=== PATIENT | female | born 1985 | race Caucasian/White ===

== ENCOUNTER → 2019-10-04 15:53 | Outpatient (CLI) | payer OTHER, SELFPAY ==
[2019-10-04 17:28] LABS: Cancer Antigen 125 15 U/mL (0-35)
== END ==
PROVIDERS: Family Provider Family Medicine; PCP Family Medicine; Visit Provider Specialist
DX: N83.202 Unspecified ovarian cyst, left side (principal); R18.8 Other ascites
CPT/HCPCS: 36415; 86304

== ENCOUNTER 2019-12-21 06:32 | Day surgery (SDC) | payer OTHER, SELFPAY ==
[2019-12-19 12:34] VITALS: BMI 36.3
[2019-12-21] VITALS (10 sets, daily range): BP systolic 95–133; BP diastolic 50–77; PULSE 78–94; RESP 11–17; TEMP 35.9–37.1; O2SAT 95–98; BMI 35.9
--- NOTE | 2019-12-21 | PATH_ITS ---
[facility] Accession Number: [id number] . 01 Material submitted: . uterus - UTERUS (NOT INCL. CERVIX), BILATERAL FALLOPIAN TUBES AND OVARIES . 02 Diagnosis: Uterus, Bilateral Fallopian Tubes and Ovaries, Supracervical Hysterectomy and Bilateral Salpingo-oophorectomy (Weight 77 grams): Secretory endometrium; negative for glandular hyperplasia, cytologic atypia, or malignancy. Myometrium with no significant histomorphologic abnormality. Uterine serosa with no significant histomorphologic abnormality. Attached ovary with a hemorrhagic corpus luteum cyst (1.9 cm) and multiple benign cortical follicular cysts. Separate ovary with multiple benign cortical luteal cysts. Attached and detached fallopian tubes with no significant histomorphologic abnormality; negative for atypia or malignancy. [facility] 12/25/2019 1036 Local . 02 Electronically signed: . Ngoc Funez MD, Pathologist NPI- [id number] . 01 Gross description: . Received in formalin, labeled uterus (not including cervix), bilateral fallopian tubes and ovaries, is an upper uterine body in multiple pieces (77 grams, 8.5 x 7.5 x 4.0 cm in aggregate), and ovary (4.0 x 3.0 x 2.2 cm) with an attached fimbriated fallopian tube (length-3.2 cm, diameter-0.4 cm), a separate ovary (3.0 x 2.4 x 1.3 cm) and a detached fimbriated fallopian tube (length-3.2 cm, diameter-0.3 cm). The cervix is absent. The specimen cannot be oriented. The apparent endometrium (average thickness-0.1 cm) is shin, smooth and flat. The myometrium cannot be grossly measured. The parenchyma is shin and unremarkable. The serosa is pale shin, smooth and shiny. The ovaries have pleitez-shin dull flat serosa and pleitez-shin solid cystic parenchyma with corpus albicans and corpus luteum identified. The cavities (0.1 cm-1.9 cm) contain clear colorless fluid. The linings are smooth and flat with no excrescences identified. The fallopian tubes have shin smooth shiny serosa and shin unremarkable lumens. Section code: (A1, A2) endomyometrium; (A3, A4) endomyometrium, opposite side; (A5) attached ovary, representative government relations serial sections; (A6) separate ovary, representative government relations serial sections; (A7) attached fallopian tube, representative government relations serial sections; (A8) attached fimbria, bivalved, entirely submitted; (A9) separate fallopian tube, representative government relations serial sections; (A10) separate fimbria, bivalved, entirely submitted. ([id number]) /MRV 12/22/2019 1427 Local . 02 Pathologist provided ICD-10: N83.209 . 02 CPT . 759433 Performed at: 01 [facility] [address] [id number] MD Olayinka Lake MD Phone: [phone] Performed at: 02 [facility] [address] [place] [address] [id number] MD Beth Dinero MD Phone: [phone]
--- NOTE | 2019-12-21 07:14 | PM.PREOP ---
Pre-operative Note Interval Note History & Physical reviewed/Exam performed by Physician: Yes Changes to H&P: No
[2019-12-21] MEDS: LACTATED RINGERS 1,000 ML 42 ML IV ×2 (07:20→08:42)
[2019-12-21] MEDS: CEFAZOLIN 2 GM/100 ML FROZ.PIGGY IV (07:41)
--- NOTE | 2019-12-21 08:20 | SUR.OPER ---
Lithotomy on padded OR bed. Ohlman Pad Positioner under torso. Head on pillow, arms padded and tucked at sides. Legs secured in padded yellow fins stirrups.
[2019-12-21] MEDS: ROPIVACAINE 2% PF 2 MG/ML 20ML AMP 20 ML INJ (08:36)
[2019-12-21] MEDS: BUPIVACAINE 0.5% W/ EPI (PF) 10 ML VIAL 30 ML INJ (08:37)
--- NOTE | 2019-12-21 09:19 | P.OP_ITS ---
Operative Date/Time/Diagnoses Date of procedure: 12/21/19 Time of procedure: 09:19 Pre-op diagnosis: Dysmenorrhea, family history of ovarian cancer, ovarian cyst Post-op diagnosis: same Procedure & Clinicians Procedure: Laparoscopic supracervical hysterectomy with bilateral salpingo oophorectomy Same procedure as scheduled: Yes Indications: Dysmenorrhea, ovarian cysts, family history of ovarian cancer Surgeon: Patricia Kaufman Patient Admitting Clerk: Caesar Davidson Yes if Unassisted: No Anesthesia Type: General Operative Notes Findings: Normal tubes, ovaries, and uterus. Possible perineal endometriosis. Physiological ovarian cyst. No internal hernias, or adhesions. Normal bowel surface. Normal liver edge. Closure Type: primary Specimen(s): other (Uterus above the level of the bladder with bilateral tubes and ovaries) Estimated Blood Loss (mL): 50 Blood products transfused: none Procedure in detail: Patient is brought to the operating room where she underwent general anesthesia and placed in low yellowfin stirrups. She was prepped and draped in the usual sterile fashion. A check list was reviewed with the staff in the room prior to beginning of the case. Patient had pulsatile stockings in place and functional. 2 g of Ancef were in prior to beginning of the case.. A Colón catheter was placed. A single-tooth tenaculum was placed on the anterior lip of the cervix and the cervix dilated to a #6 Hegar dilator. The uterine manipulator was placed through the cervix into the uterus with the balloon inflated with 3 mL of air. The area of the umbilical incision and the 5 mm right and left lower quadrant incisions were injected with 0.5% Marcaine with epi. An incision was made with scalpel. The verries needle was placed into the abdomen and confirmed in the appropriate place with withdrawal on a syringe and then free flow of fluid down through the needle. The abdomen was insufflated with CO2. The needle was removed and a 5 mm trocar placed without difficulty. There did not appear to be any damage is placement of the trocar. The right and left lower quadrant incisions were made with the scalpel and the trochars placed without damage to internal structures. The PK forceps were used to cauterize the infundibulopelvic ligaments. Sequential bites were taken along the mesosalpinx followed by the round ligaments on both sides. Sequential bites were taken down the broad ligaments. The uterine arteries were cauterized. An incision was made above the level bladder pushing the bladder away from the cervix. The JANINE loop was placed around the uterus and the uterus was amputated above the level of the bladder. Bleeding was controlled with the PK forceps. The PK forceps were used to cauterize in the endocervical canal. A supracervical incision was made and an 11 mm port placed. A 15 mm Endo Catch bag was placed in the abdomen. The uterus, tubes and ovaries were placed in the bag and brought up through the suprapubic port site. The Iván O was placed. The uterus was hand morselized. The abdomen was reinsufflated and adequate hemostasis was noted. 20 cc of ropivacaine was placed over the cervical stump. The trochars were removed and the CO2 allowed escape from the abdomen. The fascia layer of the suprapubic site was repaired with 0 Polysorb suture. Skin was closed with 4-0 Monocryl suture at the suprapubic site and the other 3 sites. The patient went to recovery room in good condition. Counts of instruments and sponges were correct. Complications: none Post-operative Condition: stable Disposition: observation (Patient hopes to be discharged later today) Plan for aftercare: Routine post laparoscopic hysterectomy.
[2019-12-21] MEDS: KETOROLAC 30 MG/ML VIAL IV (09:41)
--- NOTE | 2019-12-21 09:58 | SUR.PHASEI ---
pt transferred to acute care floor in stable condition, vss. Bedside report given to NANETTE Fitch. Pt transferred to NANETTE Fitch at that time.
[2019-12-21] MEDS: LACTATED RINGERS 1,000 ML 100 ML IV (10:38)
--- NOTE | 2019-12-21 10:47 | PC.NURSE ---
Oriented to room and call light, Patient felt urge to void upon arrival to unit. Assisted to bathroom, ambulating without problems, denies dizziness/lightheadedness or other complaint. Reports mild cramping to lower abd/pelvic area just like period cramping. Light spotting noted on cam pad. Voided without difficulty. Patient is eager to discharge to home.
--- NOTE | 2019-12-21 12:10 | PC.NURSE ---
Patient eager to leave, her is at bedside. discharge instructions reviewed with patient and her , they state understanding and have no further questions at this time. Dr. Kaufman came to see patient and changed her prescription to norco per patient's tolerance, per Dr. Kaufman's office patient is sent electronically now to . IV dc'd intact. Patient's dressings remain intact. Patient states she will call Dr. Kaufman's office to schedule her follow up appointment for 1 week. Patient escorted out via wheelchair with all her belongings by [employer] to be discharged to home with her .
== END 2019-12-21 12:23 | disposition home or self-care (01) ==
LOC: OR 06:34 → AC 06:35
PROVIDERS: Family Provider Family Medicine; PCP Family Medicine; Referring Provider Specialist; Visit Provider Specialist
PROC: 0UT94ZL Resection of Uterus, Supracervical, Percutaneous Endoscopic Approach (ICD-10-PCS; CPT 58542; principal; 2019-12-21 07:45)
DX: N83.10 Corpus luteum cyst of ovary, unspecified side (principal); F17.210 Nicotine dependence, cigarettes, uncomplicated; N83.00 Follicular cyst of ovary, unspecified side; N83.299 Other ovarian cyst, unspecified side
CPT/HCPCS: 58542; J0330; J0690; J1100; J1170; J1885; J2405; J2795; J3010

== ENCOUNTER → 2021-08-01 11:16 | Outpatient (CLI) | payer OTHER, SELFPAY ==
[2021-07-08 10:30] VITALS: BMI 35.9
[2021-08-01 13:19] LABS: COVID19 -Nasal RAPID Negative (Negative)
== END ==
PROVIDERS: Family Provider Family Medicine; PCP Family Medicine; Referring Provider Nurse Practitioner; Visit Provider Nurse Practitioner
DX: Z20.822 Contact with and (suspected) exposure to COVID-19 (principal)
CPT/HCPCS: 87635

== ENCOUNTER 2021-08-04 06:19 | Observation (INO) | payer OTHER, SELFPAY ==
[2019-12-21 10:43] VITALS: BMI 35.9
[2021-07-08 10:30] VITALS: BMI 35.9
[2021-07-31 09:44] VITALS: BMI 37.6
[2021-08-04] VITALS (18 sets, daily range): BP systolic 102–191; BP diastolic 49–99; PULSE 73–114; RESP 10–18; TEMP 35.9–37.4; O2SAT 90–98; BMI 39.1
--- NOTE | 2021-08-04 | DI.RAD.S_ITS ---
PROCEDURE: XR CERVICAL SPINE 2V OR 3V INDICATIONS: C3-C6 ACDF TECHNIQUE: 2 fluoroscopic images of the cervical spine were submitted. COMPARISON: None. FINDINGS: Anterior cervical fixation hardware is seen at C3 through C6 with evidence of discectomy. An endotracheal tube is seen in situ. IMPRESSION: Anterior cervical fixation hardware as detailed above. Dictated by: Lisandro Horton M.D. on 08/04/2021 at 11:36 Approved by: Lisandro Horton M.D. on 08/04/2021 at 11:37
[2021-08-04] MEDS: ACETAMINOPHEN 325 MG TABLET 975 MG PO (07:13)
[2021-08-04] MEDS: LACTATED RINGERS 1,000 ML 42 ML IV ×2 (07:14→09:49)
--- NOTE | 2021-08-04 07:42 | PM.HP.1 ---
History of Present Illness History of Present Illness Date Patient Seen: 08/04/21 Time Patient Seen: 07:42 Date of Onset of Symptoms: 06/25/20 Chief complaint: ACDF *OPB* Narrative: Ms. Romero is a 36 yo F with chronic neck pain with radiating pain into her arms, left worse than right. She failed multiple conservative care with worsening pain and arm numbness and weakness. After discussing risks and benefits of treatment options, patient elected to proceed with surgery. Patient History Medical History Current smoker Depression Easy bruisability Family history of malignant neoplasm of ovary in first degree relative Family history of malignant neoplasm of ovary in second degree relative Migraines Neck injury (2013) Surgical History S/P laparoscopic supracervical hysterectomy (~12/21/19) Family & Social History Social History: household members spouse,children Prior Living Arrangements House Safety & Behavioral: Feels Safe in Current Yes Environment Been Physically Hurt or No Threatened By a Person Suicidal Ideation Description None Suicide Plan Description No Plan Tobacco & Substance use: Tobacco type cigarettes Smoking Status Current every day smoker Smoking packs per day 0.5 alcohol intake current alcohol intake frequency holiday/special occasion Substance Use Type does not use Meds Home Medications and Allergies Home Medications Medication Instructions Recorded Confirmed Type cyclobenzaprine 5 mg tablet 10 mg PO BEDTIME 10/04/19 08/04/21 History sertraline 25 mg tablet 50 mg PO QAM tab 10/04/19 08/04/21 History pregabalin 50 mg capsule 75 mg PO BID 11/27/19 08/04/21 History estradiol 2 mg tablet 2 mg PO DAILY #30 tab 12/21/19 08/04/21 Rx hydrocodone 5 mg-acetaminophen 325 1 tab PO Q4-6H PRN 07/31/21 08/04/21 History mg tablet ibuprofen 200 mg tablet 2,400 mg PO DAILY PRN 07/31/21 08/04/21 History naproxen sodium 220 mg capsule 220 mg PO DAILY PRN 07/31/21 08/04/21 History (Aleve) Allergies Allergy/AdvReac Type Severity Reaction Status Date / Time procaine [From Novocain] Allergy Intermediate Verified 08/04/21 07:16 sumatriptan [From Imitrex] AdvReac Severe Increases Verified 07/31/21 10:11 pain bupropion AdvReac Mild swelling Verified 12/28/19 14:05 in ankles Review of Systems Review of Systems ROS: Yes All systems reviewed with the patient and are negative except as otherwise documented Exam Vital Signs (past 8 hours): - 08/04/21 06:51 Temperature 97.6 F Pulse Rate 89 Respiratory Rate 16 Blood Pressure 112/75 Pulse Oximetry 98 Oxygen Delivery Method Room Air Neck Other: decreased ROM due to pain and stiffness Neuro Other: + Spurlingts to LUE, sensibility decreased to left C5, C6 dermatome, motor strength 4/5 in left deltoid, biceps. Assessment & Plan Assessment & Plan narrative: Risks for surgery include but not limited to bleeding, infection, nerve/dura/esophagus/blood vessel injury, need for additional procedure, dysphagia, persisting pain. Patient understands and would like to proceed with surgery. Patient is scheduled for C3-6 ACDF. Time Spent With Patient Critical Care time: I spent a total of [] minutes of critical care time on this patient's care today; this time is exclusive of procedural time.
[2021-08-04] MEDS: CEFAZOLIN 1 GM VIAL 2 GM IV ×3 (07:55→23:54)
--- NOTE | 2021-08-04 08:20 | SUR.OPER ---
Supine, head on gel donut. Arms padded with gel pads, tucked at sides, towel roll under shoulders. Safety belt at thigh. Legs uncrossed, heels on gel pad.
--- NOTE | 2021-08-04 11:22 | P.OP_ITS ---
Operative Date/Time/Diagnoses Date of procedure: 08/04/21 Time of procedure: 08:00 Pre-op diagnosis: 1. C3-4, C4-5, C5-6 spinal stenosis 2. C3-4, C4-5, C5-6 spondylosis with radiculopathy Post-op diagnosis: same Procedure & Clinicians Procedure: 1. C3-4, C4-5, C5-6 anterior cervical diskectomy and fusion 2. C3-4, C4-5, C5-6 anterior interbody cage placement 3. C3-4, C4-5, C5-6 anterior instrumentation with plate and screw placement in C3, C4-C5-C6 vertebrae 4. Utilization of microsurgical technique and operating microscope Same procedure as scheduled: Yes Indications: Patient failed multiple conservative management with worsening pain weakness and numbness in her upper extremity. Patient has been having difficulty performing activity of daily living. After discussing risks benefits of treatment options, patient elected proceed with surgery. Surgeon: Aster Rivas Treating Engineer Helper: Megha Frye Click Yes if Unassisted: No Anesthesia Type: General Operative Notes Closure Type: primary Specimen(s): none sent Prosthetic devices, grafts, tissues, transplants, or devices: Globus Extend plate, PEEK cages Applied: catheter Estimated Blood Loss (mL): 20 Blood products transfused: none Procedure in detail: Patient was seen in the preoperative area. Risks and benefits of the surgery was discussed with the patient. Operative consent was obtained and placed in the chart. Patient was then taken to the operative room. Prophylactic antibiotic was given less than 0.5 hr prior to skin incision. General anesthesia was administered. Patient was placed into a supine position on her radiolucent table. Bilateral shoulders were taped down to allow proper C- arm imaging. Anterior cervical area was prepped and draped in a sterile fashion. Time-out was performed at this time. Using lateral C-arm imaging, the level between C3 and C6 was identified and marked on patient's neck. A oblique incision from midline towards medial border of sternocleidomastoid muscle was made. The platysma muscle was incised in line with skin incision. Metzenbaum scissor was used to develop the plane between the medial border of sternocleidomastoid d and the strap muscles medially. The carotid sheath and its contents were identified and protected behind the hand- held retractor during the entire case. The plane between the carotid sheath and strap muscles was developed with Metzenbaum scissors. Dissection was made down to the level of the anterior cervical fascia. Longus colli muscle was incised on the anterior aspect of vertebral bodies bilaterally from C3-C6. Spinal needle was placed into the C3-4 disc space and confirmed with lateral C-arm imaging. Using microsurgical technique and operative microscope, anterior cervical diskectomy was performed at C3-4 C4-5 and C5-6 level. This was done by removing the disc material, removing the anterior and posterior osteophytes posterior longitudinal ligaments along with performing bilateral foraminotomies at all 3 levels. Patient was found to have severe central and foraminal stenosis at all 3 levels. Patient's stenosis was fully decompressed after decompression was completed. After the diskectomy was completed, 3 anterior interbody cages were obtained. The cages were packed with Globus DBM bone grafting material. One cage each along with the bone grafting material was then packed into the interbody spaces from C3-C6 with one cage into each interbody level. After the cages were placed, the anterior cervical plate was stabilized to the C3-C6 vertebrae using 2 screws at each each level. Total 8 screws were placed. After confirming placement of the hardware with AP and lateral C-arm imaging, the screws were locked into the plate using the locking mechanism and torque limiting screwdriver. After the hardware was placed and confirmed with AP and lateral C-arm imaging, the wound was irrigated with sterile normal saline. The platysma muscle and the subcutaneous tissue was closed with 2-0 Vicryl. The skin was closed with 4-0 Monocryl and Steri-Strips. Patient tolerated the procedure well. Patient was transferred recovery room in stable condition. There were no complications. Complications: none Post-operative Condition: stable Disposition: PACU Plan for aftercare: Admit to inpatient hospital
[2021-08-04] MEDS: HYDROMORPHONE 2 MG INJ IV ×2 (12:01→12:09)
--- NOTE | 2021-08-04 12:06 | SUR.PHASEI ---
SBAR report at bedside from Marie FITZPATRICK [id number]
[2021-08-04] MEDS: OXYCODONE IR 5 MG TABLET PO ×2 (12:14→12:44)
[2021-08-04] MEDS: hydrOXYzine 50 MG/ML INJ 25 MG IM (12:17)
[2021-08-04] MEDS: SODIUM CHLORIDE 0.9% 1,000 ML 100 ML IV ×2 (13:15→23:53)
--- NOTE | 2021-08-04 13:33 | PC.NURSE ---
Addendum entered by Oma Polo R.N. 08/04/21 15:21: Patient tapered to 1L O2, remains 91-93%. Ice bags refilled and patient repositioned for comfort. Call light in reach. Original Note: 1250 PATIENT ARRIVED FROM PACU VIA BED WITHOUT COMPLICATION. LUNGS CTA, REQUIRING 2L O2 NC, 92-96%, RR 12. CONTINUOUS PULSE OX REMAINS ON. HRR, VSS. NS @100 STARTED PER MD ORDERS. IS PLACED BEDSIDE AND PATIENT INSTRUCTED ON USE, PATIENT PERFORMED ONE INHALATION TO 500, ENCOURAGED PATIENT TO DO 10XHOUR. PATIENT TOLERATING FLUIDS, DENIES N/V. ABD SOFT/NONTENDER, REPORTS LAST BM 08/03. PATIENT DROWSY BUT RESPONDS APPROPRIATELY TO QUESTIONS, OPENS EYES. REPORTS PAIN 03/27 AND 'CREEPING UP'. ANTERIOR DSG CDI, SOFT COLLAR INTACT, ICE PACKS PLACED POSTERIORLY PER PATIENT REQUEST. FOOT SCD'S ON BILAT. PATIENT'S KELSEA REMAINS BEDSIDE. PATIENT DENIES FURTHER NEEDS AT THIS TIME. CALL LIGHT IN REACH, WILL CONTINUE TO MONITOR.
--- NOTE | 2021-08-04 14:10 | OT.IPNOTE ---
Pt not wanting to get up for OT eval today as just up from surgery and states would rather do it tomorrow morning. Encourgaed pt to try to get up with PT later this afternoon.
[2021-08-04] MEDS: HYDROMORPHONE 0.5 MG INJ 0.2 MG IV ×4 (14:48→22:49)
--- NOTE | 2021-08-04 15:53 | PT-IP ANOTE ---
Contacted pt to initiate PT evaluation but she reported high level of pain and was too groggy and tired to meaningfully participate with therapy. Will follow up morning of 08/05.
[2021-08-04] MEDS: hydrOXYzine pamoate 25 MG CAPSULE PO ×2 (16:03→22:49)
[2021-08-04] MEDS: OXYCODONE IR 5 MG TABLET 10 MG PO ×3 (17:49→23:52)
[2021-08-04] MEDS: SENNOSIDES 8.6 MG TABLET 17.2 MG PO (20:42)
[2021-08-04] MEDS: DOCUSATE 100 MG CAPSULE PO (20:43)
[2021-08-04] MEDS: PREGABALIN 50 MG CAPSULE 75 MG PO (20:43)
--- NOTE | 2021-08-05 02:03 | PC.NURSE ---
Patient alert and oriented but anxious. Breath sounds CTA with oxygen at 1L/min with sat of 91% so O2 left on for overnight. HRR. Denied nausea. BT hypoactive but states she has passed a little flatus. Indwelling catheter is patent; urine is clear, pale yellow. Is able to move herself in bed. Gait not assessed at this time. Wearing a soft collar. Dressing to anterior neck is CDI. Complained of 8/10 posterior neck pain radiating into left arm and was medicated with oxycodone and ice packs applied and currently appears to be sleeping. Denied any sore throat or difficulty swallowing. Is wearing bilateral foot SCD's. Fall risk score is moderate.
[2021-08-05] MEDS: OXYCODONE IR 5 MG TABLET 10 MG PO ×3 (03:54→11:47)
[2021-08-05 05:30] VITALS: BP 114/63; PULSE 92; RESP 17; TEMP 36.8; O2SAT 92
[2021-08-05] MEDS: HYDROMORPHONE 0.5 MG INJ 0.2 MG IV (06:09)
[2021-08-05 07:00] VITALS: BP 125/61; PULSE 87; RESP 16; TEMP 37.8; O2SAT 89
--- NOTE | 2021-08-05 07:57 | PM.PNPO.1 ---
Subjective Subjective Date Patient Seen: 08/05/21 Time Patient Seen: 07:57 Interval history: Pain is mild. Denies fever or chills. No nausea or vomiting. Exam Vital Signs (past 8 hours): - 08/05/21 05:30 08/05/21 07:00 Temperature 98.3 F 100.1 F H Pulse Rate 92 H 87 Respiratory Rate 17 16 Blood Pressure 114/63 125/61 Pulse Oximetry 92 89 L Oxygen Delivery Method Nasal Cannula Oxygen Flow Rate 0 Narrative Exam Narrative: 36-year-old female resting comfortably in bed in no apparent distress. Soft collar is in place. Dressing is Clean, dry, intact.. Motor functions intact bilateral upper extremities. Sensation grossly intact to light touch bilateral upper extremities. [facility] Medical History Current smoker Depression Easy bruisability Family history of malignant neoplasm of ovary in first degree relative Family history of malignant neoplasm of ovary in second degree relative Migraines Neck injury (2013) Surgical History S/P laparoscopic supracervical hysterectomy (~12/21/19) Social History household members: spouse and children Smoking Status: Current every day smoker alcohol intake: current Assessment & Plan Post-op Postoperative Procedures: Procedures Operation Date: 08/04/21 07:45 Actual Procedure Side Surgeon p C3-4, C4-5, C5-6 ACDF w/anterior instrumentation Aster Rivas MD Postoperative day: 1 Postoperative status narrative: Stable Postoperative plan narrative: Mobilize with physical therapy. Soft collar for comfort. Limit bending, twisting, lifting. Disposition likely today or tomorrow.
[2021-08-05] MEDS: DOCUSATE 100 MG CAPSULE PO (08:29)
[2021-08-05] MEDS: SERTRALINE 50 MG TABLET PO (08:29)
[2021-08-05] MEDS: PREGABALIN 50 MG CAPSULE 75 MG PO (08:29)
[2021-08-05] MEDS: estradioL 1 MG TABLET 2 MG PO (08:30)
[2021-08-05] MEDS: hydrOXYzine pamoate 25 MG CAPSULE PO ×2 (08:30→13:23)
--- NOTE | 2021-08-05 10:46 | PT.IIE ---
Current Diagnoses Other spondylosis with radiculopathy, cervical region (08/04/21) Spinal stenosis, cervical region (08/04/21) Surgery Performed Operation Date: 08/04/21 07:45 Actual Procedures p C3-4, C4-5, C5-6 ACDF w/anterior instrumentation - Aster Rivas MD Medical History (Last Reviewed 08/05/21 @ 07:58 by Bernard Krishnan PA-C) Current smoker Depression Easy bruisability Family history of malignant neoplasm of ovary in first degree relative Family history of malignant neoplasm of ovary in second degree relative Migraines Neck injury (2013) Physical Therapy Inpatient Evaluation/Re-Eval M1 PT/OT-IP Prior Functional Status Start: 08/04/21 12:52 Freq: NEEDED Status: Active Protocol: Document 08/05/21 10:46 AW (Rec: 08/05/21 12:14 AW [id number]) Medical Review Prior Functional Status Medical History Reviewed Yes Communication WNL. Pt is an effective verbal communicator. Mobility and Gait Independent without assistive device. Pt states she takes walks on [place] property including [place]. Activities of Daily Living and IADL's Pt has needed assist with some upper body dressing and her does provide assist. She is otherwise independent with ADL's. She has been unable to lift heavy loads and has made modifications such as a suitcase-style laundry basket. She has been driving and her installed a back up camera as well as a swivel seat to improve safety. Social History Household Members spouse,children Living Arrangements House Number of Floors (Floors) Two Floors Number of Stairs To Enter/Railing? Ramped entry with railing. Pt stays on main level. Home Environment Standard Height Toilet,Tub/ Shower Home Equipment Hand Held Shower,Grab Bars In Shower Employment Status Unemployed Additional Social History Comment Pt has a recliner sectional and plans to sleep there when she goes home. Pt lives in [place] with her spouse, Juan. Spouse works but will be home today. When Juan goes to work, pt's mother - who lives on the property - will be available to assist. M2 PT-IP Current Condition Start: 08/04/21 12:52 Freq: NEEDED Status: Active Protocol: Document 08/05/21 10:46 AW (Rec: 08/05/21 12:14 AW [id number]) Physical Therapy Current Condition Current Condition Evaluation Date 08/05/21 Treatment Diagnosis s/p C3-6 ACDF; impaired independence with ADL's Onset Date 08/04/21 M3 PT-IP Subjective Start: 08/04/21 12:52 Freq: NEEDED Status: Active Protocol: Document 08/05/21 10:46 AW (Rec: 08/05/21 12:14 AW [id number]) Subjective Physical Therapy Visit Type Type Initial Evaluation Visit Start Time 10:30 Visit Stop Time 10:46 Total Visit Minutes 16 Notes Pt seen with OT for part of evaluation. Number of TABLEAU REPORT DEVELOPER Visits 0 Physical Therapy Visit Comments Patient Comments Pt would like to get up out of the bed. Patient Goals Pt hopes to return home today. Therapy Pain Assessment Pain When Pain Assessed At Rest Pain Present Pain Present Pain Reported Location Neck Intensity 6 Scale Used Numeric (0 - 10) Pain Management Techniques Apply Cold,Re-positioning, Timing of Activity with Medications M4 PT-IP Mobility and Gait Start: 08/04/21 12:52 Freq: NEEDED Status: Active Protocol: Document 08/05/21 10:46 AW (Rec: 08/05/21 12:14 AW [id number]) PT-Bed Mobility Assessment Supine to Sit Supine to Sit Standby Assistance,Head of Bed Elevated,Bedrails Scooting Scooting to Edge of Bed Standby Assistance PT-Transfer Assessment Sit to and From Stand Sit to and from Stand Standby Assistance,Use of Upper Extremities Equipment Transfer Assistive Device None,Gait Belt Orthotic/Prosthetic Devices or Brace: No Transfers Transfer Destination Chair Transfer Technique pt ambulated without AD Transfer Ability Level of Assist Standby Assistance Comments Mobility Comments Pt was lying in bed as PT and OT arrived. She stated she would sleep in her recliner/ sectional couch at home and did not need to practice bed mobility with HOB flat. Educated pt on supporting head and neck during transitions. She was able to self-don her soft cervical brace but needed cues for proper fit. She sat up EOB SBA and stood. She initially used FWW to ambulate toward the window with steady gait. She then ambulated around the room without AD and had no increased need for assist. She transferred to the chair SBA and was left with OT for further assessment. Gait Assessment Gait Gait Assistance Required: Standby Assistance Distance (Feet) 50 Assistive Devices Assistive Device None,Gait Belt Orthotic/Prosthetic Devices or Brace: Yes Gait Deviations General Gait Pattern Within Normal Limits Factors Limiting Gait Function Factors Limiting Gait Function Pain Comments Gait Comments Pt was educated on importance of extra awareness to lower visual field due to cervical collar. She ambulated safely without AD. Stair Climbing Assessment Comments Stair Climbing Comments Not assessed. No stairs at home. PT-Balance Assessment Sitting Balance and Reactions Static Sitting Balance Ability Normal Dynamic Sitting Balance Ability Normal Standing Balance and Reactions Static Standing Balance Ability Good Dynamic Standing Balance Ability Good Device Used no AD M5 PT-IP Objective Assessments Start: 08/04/21 12:52 Freq: NEEDED Status: Active Protocol: Document 08/05/21 10:46 AW (Rec: 08/05/21 12:14 AW [id number]) Orientation Orientation/Cognition Level of Alertness Alert Orientation Name,Day of Week,Place, Situation Language Function Ability No Deficits Noted Memory Description No Deficits Noted Gross Range of Motion Lower Extremity ROM Assessment Within Functional Limits Strength Lower Extremity Strength Assessment Within Functional Limits Comments Strength Comments BLE grossly 5/5 Sensation Assessment Sensation Gross Sensation WNL Muscle Tone Muscle Tone WNL Yes M6 PT-IP Treatment Start: 08/04/21 12:52 Freq: NEEDED Status: Active Protocol: Document 08/05/21 10:46 AW (Rec: 08/05/21 12:14 AW [id number]) Physical Therapy Treatment Education Education Provided Precautions,Post-Op Packet, Safety M7 PT-IP Assessment and Plan Start: 08/04/21 12:52 Freq: NEEDED Status: Active Protocol: Document 08/05/21 10:46 AW (Rec: 08/05/21 12:14 AW [id number]) PT Summary Assessment and Plan Potential Rehabilitation Potential Excellent Status of Condition at Evaluation Stable Summary Impairments Pain,ROM Assessment Summary Niyah is a 36 yo woman seen for PT evaluation on POD1 following C3-C6 ACDF. She is independently mobile at baseline but has been needing some assist for select dressing tasks and has made modifications to be able to avoid lifting at home. She required no more than SBA for mobility this date and has good awareness of her precautions. She will have her and her mother to assist her at home and is safe to discharge when medically cleared. Frequency of Treatment Frequency Of Treatment Discharge Precautions Cervical Spine Precautions Soft Collar for Comfort,No Heavy Lifting,Log Roll Recommendations To Nursing Amount of Assist Needed Standby Assistance Discharge Recommendations PT Discharge Recommendations Home with Assistance Transportation Needs at Discharge Private Vehicle
--- NOTE | 2021-08-05 10:58 | OT.IP.EVAL ---
Current Diagnoses Other spondylosis with radiculopathy, cervical region (08/04/21) Spinal stenosis, cervical region (08/04/21) Surgery Performed Operation Date: 08/04/21 07:45 Actual Procedures p C3-4, C4-5, C5-6 ACDF w/anterior instrumentation - Aster Rivas MD Past Medical History (Last Reviewed 08/05/21 @ 07:58 by Bernard Krishnan PA-C) Current smoker Depression Easy bruisability Family history of malignant neoplasm of ovary in first degree relative Family history of malignant neoplasm of ovary in second degree relative Migraines Neck injury (2013) S/P laparoscopic supracervical hysterectomy (~12/21/19) Surgical History (Last Reviewed 08/05/21 @ 07:58 by Bernard Krishnan PA-C) S/P laparoscopic supracervical hysterectomy (~12/21/19) Occupational Therapy Inpatient Evaluation/Re-Eval M1 PT/OT-IP Prior Functional Status Start: 08/04/21 12:52 Freq: NEEDED Status: Active Protocol: Document 08/05/21 10:46 AW (Rec: 08/05/21 12:14 AW [id number]) Medical Review Prior Functional Status Medical History Reviewed Yes Communication WNL. Pt is an effective verbal communicator. Mobility and Gait Independent without assisted device. Pt states she [place] walks [place]. Activities of Daily Living and IADL's Pt has needed assist with some upper body dressing and her does provide assist. She is otherwise independent with ADL's. She has been unable to lift heavy loads and has made modifications such as a suitcase-style laundry basket. She has been driving and her installed a back up camera as well as a swivel seat to improve safety. Social History Household Members spouse,children Living Arrangements House Number of Floors (Floors) Two Floors Number of Stairs To Enter/Railing? Ramped entry with railing. Pt stays on main level. Home Environment Standard Height Toilet,Tub/ Shower Home Equipment Hand Held Shower,Grab Bars In Shower Employment Status Unemployed Additional Social History Comment Pt has a recliner sectional and plans to sleep there when she goes home. Pt lives in [place] with her spouse, Juan. Spouse works but will be home today. When Juan goes to work, pt's mother - who lives on the property - will be available to assist. M2 OT-IP Current Condition Start: 08/05/21 12:43 Freq: Status: Active Protocol: Document 08/05/21 10:30 [facility] (Rec: 08/05/21 13:01 [facility] [id number]) Occupational Therapy Current Condition Current Condition Evaluation Date 08/05/21 Treatment Diagnosis S/P C3-4, C4-5, C5-6 ACDF Diagnosis Onset Date 08/04/21 Post Operative Precautions Cervical Spine Precautions Soft Collar for Comfort,No Heavy Lifting,Log Roll Lumbar Precautions Log Roll,No Twisting,Limit Bending M3 OT- IP Subjective and Pain Start: 08/05/21 12:43 Freq: Status: Active Protocol: Document 08/05/21 10:30 [facility] (Rec: 08/05/21 13:01 [facility] [id number]) OT- Subjective Occupational Therapy Visit Type Type Initial Evaluation Visit Start Time 10:30 Visit Stop Time 10:58 Total Visit Minutes 28 Occupational Therapy Visit Comments Patient Comments Pt wanting to get up. Patient/Caregiver Goals To go home. M4 OT- IP ADL's Start: 08/05/21 12:43 Freq: Status: Active Protocol: Document 08/05/21 10:30 [facility] (Rec: 08/05/21 13:01 [facility] [id number]) OT [id number]-[id number] Comments OT Self-Feeding Comments Pt states a little difficulty to eat due to tightness, but able to do so. Educated pt to sit upright ,eat softer and cooler foods, and alternate between solids and liquids. OT ADL-Grooming General Evaluation Grooming Ability Standby Assistance Areas Needing Assistance Retrieving/Set-up of Grooming Items Comments OT Grooming Comments Able to do while standing. OT ADL-Oral Care Comments Oral Care Comments Cued pt to spit into a cup or hinge at her hips to help lean to the sink. OT ADL-Dressing Comments OT Dressing Comments Pt states her to assist for all her needs as needed. OT ADL-Toileting Comments OT Toileting Comments Pt states not needing to go. Pt still having a cazares in place. Pt requesting to have the cazares out, nursing notified. OT ADL-Bathing Comments OT Bathing Comments Pt states to shower at home. M5 OT- IP IADL's Start: 08/05/21 12:43 Freq: Status: Active Protocol: Document 08/05/21 10:30 [facility] (Rec: 08/05/21 13:01 [facility] [id number]) OT-Instrumental Activities of Daily Living Home Safety Awareness Awareness of Need for Assistance at Home Good Awareness Ability to Problem Solve Emergency Able to Problem Solve Situations Medication Management Medication Management Comments Pt's to assist as needed. M6 OT- IP Functional Cognition Start: 08/05/21 12:43 Freq: Status: Active Protocol: Document 08/05/21 10:30 [facility] (Rec: 08/05/21 13:01 [facility] [id number]) Cognitive Factors Limiting Selfcare Function Cognitive Ability Level of Alertness Alert Patient Orientation Name,Age,Birthday,Month,Date, Year,Day of Week,Place, Situation Ability to Follow Commands Able to Follow Multi-Step Commands Memory Description No Deficits Noted Safety Awareness Underestimates Need for Assistance Problem Solving Ability No deficits Noted Cognitive Comments Cognitive Assessment Comments Pt needing cues to slow down and incorporate her cervical precautions. OT- Vision and Hearing OT- Hearing Assessment OT- Hearing Assessment WFL OT- Vision Assessment Visual Acuity WFL M7 OT- IP Mobility and Balance Start: 08/05/21 12:43 Freq: Status: Active Protocol: Document 08/05/21 10:30 [facility] (Rec: 08/05/21 13:01 [facility] [id number]) OT- Bed Mobility Assessment Rolling Level of Assistance Standby Assistance Supine to Sit Supine to Sit Assist Standby Assistance Sit to Supine Sit to Supine Assist Standby Assistance OT-Transfer Assessment Sit to and From Stand Sit to and from Stand Standby Assistance Transfers Transfer Ability Standby Assistance Technique Transfer Destination Bed,Chair Transfer Technique Stand Step Pivot Devices Transfer Assistive Devices None,Gait Belt,Front Wheeled Walker Comments Mobility Comments Pt able to walk without a device with SBA. Pt takes her knee to get up and turn into the bed. Pt cued to be careful of not moving her head too excessively. OT- Gait Assessment Comments Gait Ability Comments SBA without a FWW. OT- Balance Assessment Sitting Balance and Reactions Static Sitting Balance Ability Normal Dynamic Sitting Balance Ability Normal Standing Balance and Reactions Static Standing Balance Ability Normal Dynamic Standing Balance Ability Good M8 OT- IP Objective Assessments Start: 08/05/21 12:43 Freq: Status: Active Protocol: Document 08/05/21 10:30 [facility] (Rec: 08/05/21 13:01 [facility] [id number]) OT-Muscle Tone Assessment Muscle Tone WNL Yes M9 OT- IP Assessment and Plan Start: 08/05/21 12:43 Freq: Status: Active Protocol: Document 08/05/21 10:30 [facility] (Rec: 08/05/21 13:01 [facility] [id number]) OT Summary Assessment and Plan Potential Rehabilitation Potential Excellent Analytic Complexity at Evaluation Low Summary OT Impairments Functional Mobility,Self- Feeding,Grooming,Dressing, Toileting,Bathing Progress Towards Goals Progressing Toward Goals Assessment Summary Pt low complexity and main barrier is lang and needing cues to slow down to follow her cervical precautions. Goals Self-Feeding Goal Independent Grooming Goal Independent Dressing Goal Independent Toileting Goal Independent Bathing Goal Independent Toilet Transfer Goal Independent Shower Transfer Goal Independent Days to Meet Goals 1 Frequency of Treatment Frequency Of Treatment Once a Day Treatment Plan OT Treatment Plan ADL Training,Functional Mobility,Patient/Family Education,Discharge Planning Other Treatment Recommendations and Next shower if still here Treatment Focus Discharge Recommendations OT Discharge Recommendations Home with Assistance Home Equipment Needs shower chair? Transportation Needs at Discharge Private Vehicle
[2021-08-05 11:00] VITALS: BP 134/75; PULSE 99; RESP 14; TEMP 36.9; O2SAT 90
--- NOTE | 2021-08-05 12:10 | P.DS_ITS ---
History of Present Illness History of Present Illness Date Patient Seen: 08/05/21 Time Patient Seen: 12:10 Chief complaint: Neck pain Narrative: Patient states pain is [id number]. Denies fever chills. No shortness of breath or chest pain. No difficulty swallowing. Patient feels ready to be discharged home. She does have assistance at home. Discharge Providers Provider Date of admission: 08/04/21 06:19 Discharge Date: 08/05/21 Primary care physician: Alejo Lee MD Consults: 08/04/21 12:46 Consult to Occupational Therapy Evaluate & Treat Comment: Physician Instructions: Evaluate and treat Consult to Physical Therapy Evaluate & Treat Comment: Physician Instructions: Evaluate and Treat Discharge provider: Bernard Krishnan PA-C Summary Hospital Course Discharge Diagnosis: 1. C3-4, C4-5, C5-6 spinal stenosis 2. C3-4, C4-5, C5-6 spondylosis with radiculopathy Hospital Course: 1.? C3-4, C4-5, C5-6 anterior cervical diskectomy and fusion 2.? C3-4, C4-5, C5-6 anterior interbody cage placement 3.? C3-4, C4-5, C5-6 anterior instrumentation with plate and screw placement in C3, C4-C5-C6 vertebrae 4.? Utilization of microsurgical technique and operating microscope Same procedure as scheduled: Yes Indications: Patient failed multiple conservative management with worsening pain weakness and numbness in her upper extremity.? Patient has been having difficulty performing activity of daily living.? After discussing risks benefits of treatment options, patient elected proceed with surgery. Surgeon: Aster Rivas Risk Management Analyst: Megha Frye Click Yes if Unassisted: No Anesthesia Type: General Operative Notes Closure Type: primary Specimen(s): none sent Prosthetic devices, grafts, tissues, transplants, or devices: Globus Extend plate, PEEK cages Applied: catheter Estimated Blood Loss (mL): 20 Blood products transfused: none Patient admitted to the hospital for the above-mentioned procedure. Patient consented to the same. Patient underwent cervical fusion August 04, 2021. Patient back in her room recovering well as in stable condition. Patient has worked with physical therapy. Patient will be discharged home today in stable condition. Exam Vital Signs (past 8 hours): - 08/05/21 05:30 08/05/21 07:00 08/05/21 11:00 Temperature 98.3 F 100.1 F H 98.4 F Pulse Rate 92 H 87 99 H Respiratory Rate 17 16 14 Blood Pressure 114/63 125/61 134/75 Pulse Oximetry 92 89 L 90 L Oxygen Delivery Method Room Air Oxygen Flow Rate 0 Narrative Exam Narrative: 36-year-old resting comfortably in bed in no apparent distress. Neurovascular status is intact bilateral upper extremities. Cervical dressing is Clean, dry, intact.. PFSH Medical History Current smoker Depression Easy bruisability Family history of malignant neoplasm of ovary in first degree relative Family history of malignant neoplasm of ovary in second degree relative Migraines Neck injury (2013) Surgical History S/P laparoscopic supracervical hysterectomy (~12/21/19) Social History household members: spouse and children Smoking Status: Current every day smoker alcohol intake: current Discharge Assessment & Plan Assessment and Plan Assessment: Progressing as expected status post cervical fusion Plan of Treatment: Discharge home today in stable condition Discharge Plan Discharge Plan Patient Disposition: Home Discharge orders & Medications Prescriptions: New docusate sodium 100 mg Capsule 100 mg PO BID Qty: 20 RF: 0 oxycodone 5 mg Tablet 10 mg PO Q3HR PRN (Reason: Pain, Severe (7-10)) Qty: 40 RF: 0 hydroxyzine pamoate 25 mg Capsule 25 mg PO Q4HR PRN (Reason: Nausea And Vomiting) Qty: 20 RF: 0 Continued estradiol 2 mg tablet 2 mg PO DAILY Qty: 30 RF: 12 pregabalin 50 mg capsule 75 mg PO BID RF: 0 cyclobenzaprine 5 mg tablet 10 mg PO BEDTIME RF: 0 sertraline 25 mg tablet 50 mg PO QAM RF: 0 Discontinued naproxen sodium [Aleve] 220 mg Capsule 220 mg PO DAILY PRN (Reason: Pain) RF: 0 hydrocodone-acetaminophen 5-325 mg tablet 1 tab PO Q4-6H PRN (Reason: pain) RF: 0 ibuprofen 200 mg Tablet 2,400 mg PO DAILY PRN (Reason: Pain) RF: 0 Follow up/Referrals: Alejo Lee MD [Primary Care Provider] - Aster Rivas MD [Physician] - (2 weeks) Diet/Activity/Treatments Diet: Diet as Tolerated Activity: Limit bending, twisting, lifting Cold/Heat Therapy: Ice as need Other treatments: Soft collar for comfort Skin/Wound/Dressing Care Report to your healthcare provider any signs of infection, such as:: chills, fever, increased pain, unusual drainage and unusual redness Dressing: Keep dressing clean and dry Visit Report/Discharge Packet Instructions: DI for Constipation, How to Prevent Falls, DI for Prescription Opioid Use, DI for Anterior Cervical Discectomy and Fusion, DI for Taking Pain Medication Stand Alone Forms: Surgery Discharge Discharge Data Primary Care Provider: Alejo Lee Attending Provider: Aster Rivas
--- NOTE | 2021-08-05 13:09 | CM.DANOTE ---
DCP/Assessment: Reviewed chart. Patient is a 36yr old female admitted to [facility] for elective spinal surgery. PCP listed is Dr. Lee. Primary payor is 1) [facility]. Patient with order to d/c home today with family. Patient seen by therapy and Orthopedics and it was determined patient medically stable for d/c. MAGAZINE WRITER attempted to meet with patient this afternoon and patient being read d/c instructions by RN. No anticipated d/c planning needs at this time. 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 No Advance Directives on File No History Provided By Medical Record Prior Living Arrangements House Household Members spouse,children Type of transporation used prior to Drives own vehicle admit Independent with ADL's Yes Is patient alert and oriented? Yes Caregiver for Another Yes: children Barriers to Discharge No Discharge Plan Home Transportation Arrangement Family to provide transport. Referrals Initiated None needed Review Status In Process Next Review Type Continued Stay Review Pre-Anesthesia Assessment Start: 07/31/21 09:44 Freq: Status: Complete Protocol: Document 07/31/21 09:44 CAB (Rec: 07/31/21 10:34 CAB [id number]) Pre-Anesthesia Assessment Patient Information Reviewed Via Phone Assessment Assessment Completed With Patient Diagnostic Results BMP/CMP,CBC Comment Outside labs scanned, COVID screen 08/01/21 Primary Care Provider Alejo Lee Seen Specialist in Last 12 Months Yes Specialist Seen Orthopedist,Other Comment Pain specialist Primary Language Haitian Preferred Language Haitian Collet Maker Required No Height 147.32 cm Weight 81.647 kg Body Mass Index (BMI) 37.6 Hearing Ability Normal Visual Assist None Dentition Type Full- Upper & Lower Barriers to Learning None Hx Anesthesia Reactions Yes: Takes a lot to put me down Hx Family Anesthesia Reaction Yes: Mom-Nausea Hx Malignant Hyperthermia No Hx Blood Transfusions No Hx Blood Transfusion Reaction No Anesthesia Review Requested No 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 No Does patient have KLEIN/SOB No Hx Sleep Apnea No CPAP/BIPAP use not prescribed Currently Taking a Beta Ann No Hx Chest Pain No Hx SOB No Hx Syncope or Dizziness No Anti-Coagulant Therapy No Has a Jar Filler No Cardiac Testing No Hx Pacemaker/ICD No Pacemaker Rep Required? No Cardiac Clearance Received Not Applicable Diet Type At Home Regular dysphagia Yes: Large pills Urinary Catheter Present No Hx Urinary Self Catheterization No Diabetes No Patient No Lactating No Hx Drug Resistant Organism No Presence of External or Internal Medical No: Dentures Devices Have you had any close contact with No someone diagnosed with COVID-19? Received a COVID vaccine? Yes Received all doses? Yes Marital Status Lives With spouse,children Prior Living Arrangements House Support System Parent(s),Spouse Does the Patient Have Assistance After Yes Surgery Patient Discharge Plan Description Return Home Comment Pt not advised on length of stay per surgeon Feels Safe in Current Environment Yes Been Physically Hurt or Threatened By a No Person in Current Environment Do you have thoughts of harming yourself None or others? Are you currently considering suicide? No Do you have a plan to hurt yourself or No Plan others? Do You Have Any Spiritual Beliefs That No May Affect Your HC Choices? Do You Have Any Cultural Practices That No May Affect Your HC Choices? Comment Ignacio Who Can We Speak to About Patient's Care Family, friends Identifying Code for Release of Patient Declines to issue Information Health Care Proxy/Next of Kin Kelsea () Health Care Proxy Emergency Contact Name Kelsea () Emergency Contact Advance Directives? No Power of Contact Agent No PAC Instructions Medications to take/avoid, Nasal antibiotic,No ETOH/ petroleum product on skin DOS, NPO,Post-op transportation, Sensory aids,Sturdy shoes/ comfortable clothes,Do not bring valuables and remove jewelry
--- NOTE | 2021-08-05 14:32 | PC.NURSE ---
Discharge: Pt desires to d/c to home. She has been having low sats, between 88-90%, IS to 1000 with enc. Does have a hx of smoking. GISSELLE Krishnan made aware and he came and eval pt, she may still go home. Colón out and has voided. Tolerates diet w/out problems. Po pain med effective. PT has been in and given pt instructions. GISSELLE Krishnan gave pt instructions. Reviewed d/c packet. Questions answered. Pt d/c home via auto w/spouse.
== END 2021-08-05 13:00 | disposition home or self-care (01) ==
LOC: OR 06:22 → AC 06:23
PROVIDERS: Admitting Provider Orthopaedic Surgery Orthopaedic Surgery of the Spine; Family Provider Family Medicine; PCP Family Medicine; Referring Provider Anesthesiology Pain Medicine; Visit Provider Orthopaedic Surgery Orthopaedic Surgery of the Spine
PROC: (CPT 22551; principal; 2021-08-04 07:45)
DX: M48.02 Spinal stenosis, cervical region (principal); M47.22 Other spondylosis with radiculopathy, cervical region; F17.210 Nicotine dependence, cigarettes, uncomplicated; G43.909 Migraine, unspecified, not intractable, without status migrainosus; F32.9 Major depressive disorder, single episode, unspecified
CPT/HCPCS: 22551; 22552 ×2; 22853 ×3; 72040; 76000; 97161; 97165; 97535; C1776; G0378; J0690; J1100; J1170; J2250; J2405; J2704; J3010; J3410